=== PATIENT | female | born 1990 ===

== ENCOUNTER 2017-11-12 09:01 | Emergency (ER) | payer BC ==
[2017-11-12 09:07] VITALS: PULSE 68; O2SAT 99
[2017-11-12] MEDS ORDERED: Lidocaine 5% Patch TD STA (09:26)
[2017-11-12] MEDS ORDERED: Lidocaine 5% Patch TD ONE (09:36)
--- NOTE | 2017-11-12 10:03 | C.PDOC ---
History Of Present Illness 27 yr old female who is a [employer] employee, presents to the ER with complaints of thoracic back pain starting from the base of the skull down to the mid thoracic area. Patient reports of pain to the right>left and describes the pain as 8/10. Patient states the pain stared while she was at work and worsened over night. Denies fever, chills, ear pain, abdominal pain, headache, URI symptoms, weakness or numbness. Time Seen by Provider: 11/12/17 09:11 Chief Complaint (Nursing): Back Pain History Per: Patient History/Exam Limitations: no limitations Onset/Duration Of Symptoms: Days Current Symptoms Are (Timing): Still Present Past Medical History Reviewed: Historical Data, Nursing Documentation, Vital Signs Vital Signs: Last Vital Signs Temp 97.8 F 11/12/17 10:14 Pulse 68 11/12/17 10:14 Resp 20 11/12/17 10:14 BP 110/71 11/12/17 10:14 Pulse Ox 99 11/12/17 10:14 - Medical History PMH: Anemia, Asthma, Hyperthyroidism Family History: States: No Known Family Hx - Social History Hx Tobacco Use: No Hx Alcohol Use: No Hx Substance Use: No - Immunization History Hx Tetanus Toxoid Vaccination: No Hx Influenza Vaccination: No Hx Pneumococcal Vaccination: No Review Of Systems Except As Marked, All Systems Reviewed And Found Negative. Constitutional: Negative for: Fever, Chills ENT: Negative for: Ear Pain Gastrointestinal: Negative for: Abdominal Pain Musculoskeletal: Positive for: Back Pain (Thoracic pain starting from base of skull) Neurological: Negative for: Weakness, Numbness, Headache Physical Exam - Physical Exam Appears: Non-toxic, In Acute Distress (In pain) Skin: Warm, Dry, No Rash Head: Atraumatic, Normacephalic Ear(s): Bilateral: Normal Oral Mucosa: Moist Neck: No Midline Cervical Tenderness, Supple, Other (Pain with movement) Cardiovascular: Rhythm Regular, No Murmur Respiratory: Normal Breath Sounds, No Rales, No Rhonchi, No Stridor, No Wheezing Back: Other ((+) Point tenderness along the medial aspect of the right scapula. Multiple muscle spasms noted.) Extremity: Normal ROM, No Swelling Neurological/Psych: Oriented x3, Normal Speech, Normal Motor ED Course And Treatment O2 Sat by Pulse Oximetry: 99 (RA) Pulse Ox Interpretation: Normal Medical Decision Making Medical Decision Making: PLAN: * Motrin PO * Tylenol PO Disposition Counseled Patient/Family Regarding: Diagnosis, Need For Followup, Rx Given - Disposition Disposition: HOME/ ROUTINE Disposition Time: 10:01 Condition: IMPROVED Additional Instructions: follow up with your doctor. Take medications as indicated. warm showers, rest, liniment and massage will help. Prescriptions: diaZEpam [Valium] 5 mg PO TID #12 tab Ibuprofen [Motrin] 600 mg PO TID #12 tab Instructions: Muscle Spasm (ED) Forms: General Discharge Instructions, [facility] (Bel[place]ian), Work Excuse - POA Present On Arrival: None - Clinical Impression Clinical Impression: Thoracic back pain, Muscle spasm - Scribe Statement The provider has reviewed the documentation as recorded by the Kristen Iverson Provider Attestation: All medical record entries made by the Tingibneisha were at my direction and personally dictated by me. I have reviewed the chart and agree that the record accurately reflects my personal performance of the history, physical exam, medical decision making, and the department course for this patient. I have also personally directed, reviewed, and agree with the discharge instructions and disposition.
[2017-11-12 10:16] VITALS: BP 110/71; RESP 20; TEMP 97.8
== END 2017-11-12 10:25 | disposition home or self-care (01) ==
LOC: C.ER 09:01
DX: M62.838 Other muscle spasm (principal); M54.6 Pain in thoracic spine